=== PATIENT | female | born 1965 | race Two or more races ===

== ENCOUNTER 2018-04-14 17:10 | Emergency (ER) | payer MEDICARE, MEDICAID ==
[~2018-04-14] VITALS: Ht 160 cm; Wt 109.1 kg
[2018-04-14] MEDS ORDERED: PERTUSS(ACELL),DIPH,TET VAC/PF 0.5 ML VIAL IM ONE (20:00)
[2018-04-14] MEDS ORDERED: AMOX TR/POT CLAV 500 MG/125 MG TABLET PO ONE (20:00)
[2018-04-14] MEDS ORDERED: BACITRACIN 0.9 GM PACKET OINTMENT TP ONE (20:00)
[2018-04-14] MEDS ORDERED: ACETAMINOPHEN 500 MG TABLET PO ONE (20:00)
[2018-04-14 21:14] VITALS: BP 141/89
== END 2018-04-14 21:26 | disposition home or self-care (01) ==
LOC: EMS 17:13
DX: S81.802A Unspecified open wound, left lower leg, initial encounter (principal); E11.9 Type 2 diabetes mellitus without complications; I10 Essential (primary) hypertension; W54.0XXA Bitten by dog, initial encounter; Y93.01 Activity, walking, marching and hiking; Y92.488 Other paved roadways as the place of occurrence of the external cause; Y99.8 Other external cause status
CPT/HCPCS: 90471; 90715; 99284